=== PATIENT | female | born 1960 | race Caucasian/White ===

== ENCOUNTER 2016-08-10 15:03 | Emergency (ER) | payer BC ==
[2016-08-10 15:12] VITALS: BP 133/54
--- NOTE | 2016-08-10 16:24 | RAD ---
INDICATION: Right rib injury. TECHNIQUE: 4 views of the right ribs were obtained. FINDINGS: There is a fracture of the right lateral ninth rib which appears nondisplaced. No other fractures are seen. No pleural effusion is seen. IMPRESSION: NONDISPLACED FRACTURE OF THE RIGHT LATERAL NINTH RIB.
--- NOTE | 2016-08-10 17:18 | UC ---
Truncal Trauma HPI - HPI Summary HPI Summary: CARRYING PLASTIC W3ATER JUGS ON 08/05/16; FELL FORWARD ONTO JUGS. SINCE FALL HAS HAD RIGHT RIB PAIN. HISTORY OF RIB FRACTURES TEN YEARS AGO. - History Of Current Complaint Chief Complaint: UCChestPain Stated Complaint: RIGHT RIB PAIN Time Seen by Provider: 08/10/16 15:07 Hx Obtained From: Patient Hx Last Menstrual Period: years ago Onset/Duration: Sudden Onset, Lasting Days, Still Present Onset Of Pain: Post Accident Severity Initially: Moderate Severity Currently: Moderate Pain Intensity: 8 Pain Scale Used: 0-10 Numeric Mechanism Of Injury: Blunt Trauma, Fall From A Standing Position Aggravating Factor(s): Movement, Deep Breathing, Cough Alleviating factor(s): Rest, Shallow Breathing Associated Signs And Symptoms: Positive: Negative Related History: Similar Episode That Was Diagnosed As: - RIB FX 10 + YRS AGO - Allergies/Home Medications Allergies/Adverse Reactions: Allergies Allergy/AdvReac Type Severity Reaction Status Date / Time Prednisone AdvReac See Comment Verified 05/25/15 12:25 PMH/Surg Hx/FS Hx/Imm Hx Previously Healthy: Yes Endocrine History Of: Denies: Diabetes Cardiovascular History Of: Denies: Hypertension, Pacemaker/ICD - Surgical History Surgical History: Yes Surgery Procedure, Year, and Place: LEFT leg surgery for varicose veins, [facility] - Family History Known Family History: Negative: Renal Disease, Respiratory Disease - Social History Occupation: Employed Full-time Lives: With Family Alcohol Use: Occasionally Substance Use Type: None Smoking Status (MU): Light Every Day Tobacco Smoker Type: Cigarettes Amount Used/How Often: 1/2 PPD Length of Time of Smoking/Using Tobacco: 20+ YEARS Have You Smoked in the Last Year: Yes Household Exposure Type: Cigarettes Review of Systems Constitutional: Negative Skin: Negative Eyes: Negative ENT: Negative Respiratory: Negative Cardiovascular: Negative Gastrointestinal: Negative Genitourinary: Negative Motor: Negative Neurovascular: Negative Musculoskeletal: Arthralgia, Myalgia Neurological: Negative Psychological: Negative All Other Systems Reviewed And Are Negative: Yes Physical Exam Triage Information Reviewed: Yes Appearance: Well-Nourished, Ill-Appearing, Pain Distress - MILD Vital Signs: Initial Vital Signs Temp 98.1 F 08/10/16 15:06 Pulse 65 08/10/16 15:06 Resp 16 08/10/16 15:06 BP 133/54 08/10/16 15:06 Pulse Ox 100 08/10/16 15:06 Vital Signs Reviewed: Yes Eye Exam: Normal ENT Exam: Normal ENT: Positive: Normal ENT inspection, Hearing grossly normal, TMs normal Dental Exam: Normal Neck exam: Normal Neck: Positive: Supple, Nontender, No Lymphadenopathy Respiratory Exam: Normal Respiratory: Positive: Chest non-tender, Lungs clear, Normal breath sounds, No respiratory distress, No accessory muscle use Cardiovascular Exam: Normal Cardiovascular: Positive: RRR, No Murmur Abdominal Exam: Normal Abdomen Description: Positive: Nontender, No Organomegaly Musculoskeletal Exam: Normal Neurological Exam: Normal Psychological Exam: Normal Skin Exam: Normal Truncal Trauma Course/Dx - Differential Dx/Diagnosis Differential Diagnosis/HQI/PQRI: Cardiac Contusion, Chest Wall Contusion, Chest Wall Abrasion, Rib Fracture Provider Diagnoses: NONDISPLACED RIB FRACTURE RIGHT NINTH RIB Discharge - Discharge Plan Condition: Stable Disposition: HOME Patient Education Materials: Rib Fracture (ED) Referrals: [facility] [Outside] Davida Valera PA [Primary Care Provider] -
== END 2016-08-10 16:43 | disposition home or self-care (01) ==
LOC: UCCORT 15:03
DX: S22.31XA Fracture of one rib, right side, initial encounter for closed fracture (principal); W18.39XA Other fall on same level, initial encounter; Y93.89 Activity, other specified; Y92.9 Unspecified place or not applicable; Z88.8 Allergy status to other drugs, medicaments and biological substances; F17.210 Nicotine dependence, cigarettes, uncomplicated
CPT/HCPCS: 99211; G0463